=== PATIENT | male | born 1975 | race Caucasian/White ===

== ENCOUNTER 2024-10-30 10:54 | Emergency (ER) | payer MEDICAID, OTHER ==
[~2024-10-30] VITALS: Ht 177.8 cm; Wt 86.4 kg
[2024-10-30] MEDS: OxyCODONE HCL/ACETAMINOPHEN 5-325 MG TABLET PO ONE (12:40)
[2024-10-30] MEDS: IBUPROFEN 600 MG TABLET PO ONE (12:41)
[2024-10-30 13:15] VITALS: BP 146/84; PULSE 82; RESP 18; TEMP 98.4; O2SAT 99
[2024-10-30] MEDS ORDERED: OXYC-490 PO (13:38)
[2024-10-30] MEDS ORDERED: IBUP-1492 PO (13:38)
== END 2024-10-30 13:47 | disposition home or self-care (01) ==
LOC: EMS 11:07
DX: S82.891A Other fracture of right lower leg, initial encounter for closed fracture (principal); W18.42XA Slipping, tripping and stumbling without falling due to stepping into hole or opening, initial encounter; Y93.89 Activity, other specified; Y92.89 Other specified places as the place of occurrence of the external cause; Y99.8 Other external cause status
CPT/HCPCS: 29515; 73700; 99284; 73600-TC; 73610-TC; Z7502; Z7610